=== PATIENT | male | born 1980 | race Caucasian/White ===

== ENCOUNTER 2020-09-06 10:38 | Emergency (ER) | payer OTHER ==
--- NOTE | 2020-09-06 11:15 | EDM.PDOC ---
ED HPI GENERAL MEDICAL PROBLEM - General Chief Complaint: Laceration Stated Complaint: HEAD INJURY AT WORK Time Seen by Provider: 09/06/20 11:05 Source of Information: Reports: Patient History Limitations: Reports: No Limitations - History of Present Illness INITIAL COMMENTS - FREE TEXT/NARRATIVE: 39-year-old male with a laceration to the left parietal scalp after being hit with some type of a piece of equipment that fell off a shelf at work. He has a 2 cm scalp laceration, bleeding is now controlled. No loss of consciousness, dizziness or headache. No other symptoms. Onset: Sudden Duration: Hour(s): (Within the last hour) Location: Reports: Head Associated Symptoms: Reports: No Other Symptoms - Related Data Allergies Allergy/AdvReac Type Severity Reaction Status Date / Time No Known Allergies Allergy Verified 09/06/20 11:02 Home Meds: Home Meds NK [No Known Home Meds] 09/06/20 [History] Past Medical History - Past Surgical History Musculoskeletal Surgical History: Reports: Other (See Below) Other Musculoskeletal Surgeries/Procedures:: bilateral leg surgeries. Social & Family History - Tobacco Use Tobacco Use Status *Q: Current Every Day Tobacco User Years of Tobacco use: 18 Packs/Tins Daily: 0.7 - Recreational Drug Use Recreational Drug Use: No ED ROS GENERAL - Review of Systems Review Of Systems: See Below Constitutional: Denies: Fever, Chills HEENT: Denies: Vision Change Respiratory: Denies: Shortness of Breath GI/Abdominal: Denies: Nausea, Vomiting Neurological: Denies: Dizziness, Headache ED EXAM, SKIN/RASH Exam: See Below Exam Limited By: No Limitations General Appearance: Alert, No Apparent Distress Eye Exam: Bilateral Eye: Normal Inspection Head: Other (Patient has a 2 cm fairly shallow laceration but into the subcutaneous tissue on the left parietal scalp) Neck: Supple, Non-Tender Respiratory/Chest: No Respiratory Distress, Lungs Clear Neurological: Alert, Oriented Psychiatric: Normal Affect, Normal Mood Course - Vital Signs Last Recorded V/S: Last Vital Signs Temp 98.0 F 09/06/20 11:02 Pulse 72 09/06/20 11:02 Resp 16 09/06/20 11:02 BP 129/65 09/06/20 11:02 Pulse Ox 97 09/06/20 11:02 - Re-Assessments/Exams Free Text/Narrative Re-Assessment/Exam: 09/06/20 11:14 Without anesthesia, 2 tara were applied across the laceration with good approximation of the edges. These can be removed in 7 days. Departure - Departure Time of Disposition: 11:45 Disposition: Home, Self-Care 01 Clinical Impression: Laceration of scalp Qualifiers: Encounter type: initial encounter Qualified Code(s): S01.01XA - Laceration without foreign body of scalp, initial encounter - Discharge Information Instructions: Laceration Care, Adult, [id number] Referrals: PCP,None [Primary Care Provider] - Forms: ED Department Discharge Care Plan Goals: Keep wound clean while healing and tara can be removed in 7 days. Return sooner if concerns of infection or not healing satisfactorily. Sepsis Event Note (ED) - Evaluation Sepsis Screening Result: No Definite Risk - Focused Exam Vital Signs: Vital Signs Temp Pulse Resp BP Pulse Ox 09/06/20 11:02 98.0 F 72 16 129/65 97 09/06/20 10:58 98.0 F 72 16 129/65 97
== END 2020-09-06 11:45 | disposition home or self-care (01) ==
LOC: JP.ED 10:38
DX: S01.01XA Laceration without foreign body of scalp, initial encounter (principal); Z72.0 Tobacco use; W20.8XXA Other cause of strike by thrown, projected or falling object, initial encounter; Y99.0 Civilian activity done for income or pay
CPT/HCPCS: 12001; 99282; 99282-25